=== PATIENT | male | born 1990 | race African-American/Black ===

== ENCOUNTER 2019-01-22 21:31 | Outpatient (CLI) | payer SELFPAY | END 2019-01-22 21:32 | disposition critical access hospital (66) | LOC: EMS 21:31 | PROVIDERS: ATTEND Surgery | DX: S71.101A Unspecified open wound, right thigh, initial encounter (principal); R40.20 Unspecified coma; V29.40XA Motorcycle driver injured in collision with unspecified motor vehicles in traffic accident, initial encounter; Y92.413 State road as the place of occurrence of the external cause | CPT/HCPCS: A0425; A0433 ==

== ENCOUNTER 2019-01-22 22:01 | Emergency (ER) | payer OTHER ==
[2019-01-22] MEDS ORDERED: SODIUM CHLORIDE 0.9% 3,000 ML IV ONE (22:05)
[2019-01-22] MEDS ORDERED: EPINEPHrine ABBOJECT 1 MG/10 ML SYRINGE IVP STA (22:38)
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
[2019-01-22 23:22] VITALS: BP 105/95
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
== END 2019-01-22 23:15 | disposition expired ==
LOC: EDBD → EDUNIT# → ED 22:01
DX: I46.9 Cardiac arrest, cause unspecified (principal); S27.1XXA Traumatic hemothorax, initial encounter; S09.90XA Unspecified injury of head, initial encounter; S79.921A Unspecified injury of right thigh, initial encounter; V23.4XXA Motorcycle driver injured in collision with car, pick-up truck or van in traffic accident, initial encounter; Y93.89 Activity, other specified; Y92.410 Unspecified street and highway as the place of occurrence of the external cause
CPT/HCPCS: 32551; 36430; 71045; 86850; 86900; 86901; 86920; 96374; 99281; 99291; P9016